=== PATIENT | female | born 1935 | race Caucasian/White ===

== ENCOUNTER 2024-01-30 10:34 | Outpatient (CLI) | payer MEDICARE, BC, SELFPAY | END 2024-01-30 10:35 | disposition home or self-care (01) | LOC: AMB 02-03 20:45 | PROVIDERS: Visit Provider Family Medicine | DX: S09.90XA Unspecified injury of head, initial encounter (principal); W18.30XA Fall on same level, unspecified, initial encounter; Y92.009 Unspecified place in unspecified non-institutional (private) residence as the place of occurrence of the external cause | CPT/HCPCS: A0425; A0427 ==

== ENCOUNTER 2024-01-30 11:16 | Observation (INO) | payer MEDICARE, BC, SELFPAY ==
[2024-01-30] VITALS (41 sets, daily range): BP systolic 109–168; BP diastolic 61–127; PULSE 60–93; RESP 16–22; TEMP 35.9–36.7; O2SAT 95–100; BMI 22.6; BMI 22.4
--- NOTE | 2024-01-30 | CRLHL7_ITS ---
For Patients: As a result of the Century Cures Act, medical imaging exams and procedure reports are released immediately into your electronic medical record. You may view this report before your referring provider. If you have questions, please contact your health care provider. CLINICAL HISTORY: Trauma. TECHNIQUE: Helical CT acquisition of the cervical spine was performed. Coronal and sagittal reformations were performed and interpreted. COMPARISON: None available. FINDINGS: There is no evidence of acute displaced fracture or traumatic malalignment of the cervical spine. The facets are well aligned. Vertebral body heights are maintained without evidence of significant compression deformity. No evidence of significant trauma at the craniocervical junction. Cervical spondylosis. No evidence of severe spinal canal stenosis. Uncovertebral hypertrophy and facet arthropathy contribute to varying degrees of multilevel foraminal narrowing. The visualized prevertebral soft tissues are unremarkable. The visualized lung apices are unremarkable. IMPRESSION: No acute displaced fracture or traumatic malalignment of the cervical spine. Please note that all CT scans at this facility use dose modulation, iterative reconstruction, and/or weight-based dosing when appropriate to reduce radiation dose to as low as reasonably achievable. Dictated by Travis Williamson MD @ 01/30/2024 12:13:30 PM (Electronically Signed)
--- NOTE | 2024-01-30 | CRLHL7_ITS ---
For Patients: As a result of the Century Cures Act, medical imaging exams and procedure reports are released immediately into your electronic medical record. You may view this report before your referring provider. If you have questions, please contact your health care provider. CLINICAL HISTORY: Trauma. TECHNIQUE: Standard helical CT image acquisition through the head was performed. COMPARISON: None available. FINDINGS: There is no acute intracranial hemorrhage, extra-axial collection, mass effect or midline shift. Mancilla-white matter differentiation is preserved. Age-appropriate mild generalized parenchymal volume loss. No acute hydrocephalus. Patchy hypoattenuation in the white matter of both hemispheres likely reflect sequela of chronic small vessel ischemia. No displaced calvarial fracture. Moderate-sized right parieto-occipital scalp hematoma with several foci of subcutaneous emphysema. Thinning of the ocular lenses. The paranasal sinuses and mastoid air cells are well aerated. IMPRESSION: 1. No CT evidence of acute intracranial abnormality or closed head injury. 2. Moderate-sized right parieto-occipital scalp hematoma with several associated foci of subcutaneous emphysema. Please note that all CT scans at this facility use dose modulation, iterative reconstruction, and/or weight-based dosing when appropriate to reduce radiation dose to as low as reasonably achievable. Dictated by Travis Williamson MD @ 01/30/2024 12:09:58 PM (Electronically Signed)
--- NOTE | 2024-01-30 11:34 | CRLHL7_ITS ---
For Patients: As a result of the Cures Act, medical imaging exams and procedure reports are released immediately into your electronic medical record. You may view this report before your referring provider. If you have questions, please contact your health care provider. INDICATION: Fall, syncope TECHNIQUE: Chest 1 view. COMPARISON: None. FINDINGS: The heart is normal in size. The pulmonary vasculature is within normal limits. The lungs are clear. Bones are unremarkable. IMPRESSION: No acute process. Dictated by Thelma Reyez MD @ 01/30/2024 12:35:41 PM Dictated by: Thelma Reyez MD @ 01/30/2024 12:35:49 (Electronically Signed)
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
[2024-01-30 12:15] LABS: Lactate* 1.2 mmol/L (0.5-1.9)
[2024-01-30 12:17] LABS: Basophils Absolute Auto 0.01 K/uL (0.00-0.30); Basophils Percent Auto 0.2 % (0.0-3.0); Eosinophils Absolute Auto 0.02 K/uL (0.00-0.50); Eosinophils Percent Auto 0.3 % (0.0-7.0); Hematocrit 28.7 % (33.0-51.0); Hemoglobin* 9.1 gm/dL (12.0-16.0); Lymphocytes Percent Auto 8.2 % (20-44); Mean Corpuscular HGB Conc 32 gm/dL (32-36); Mean Corpuscular Hemoglobin 35 pg (26-34); Mean Corpuscular Volume 110 fL (80-100); Monocytes Percent Auto 4.4 % (0.0-11.0); Neutrophils Percent Auto 86.9 % (42.0-72.0); Platelet Count* 162 K/uL (140-440); RDW Coefficient of Variation % 13.5 % (11.5-15.5); Red Blood Count 2.62 m/uL (4.00-5.20); White Blood Count* 6.33 K/uL (4.50-11.00)
[2024-01-30 12:25] LABS: Slide Review Reflex No
[2024-01-30 12:33] LABS: Chloride* 103 mmol/L (96-114); Sodium* 137 mmol/L (135-149)
[2024-01-30 12:34] LABS: Potassium* 4.3 mmol/L (3.6-5.1)
[2024-01-30 12:35] LABS: Creatinine* 0.9 mg/dL (0.5-1.5); Est. Creatinine Clearance* 32.39; Estimated Glomerular Filt Rate 62 ml/min
[2024-01-30 12:36] LABS: Alkaline Phosphatase* 51 U/L (40-150); Anion Gap 7 mEq/L (7-15); Aspartate Amino Transferase* 43 U/L (12-35); Carbon Dioxide* 27 mmol/L (20-32); Creatine Kinase* 75 U/L (41-117); Total Protein* 8.2 g/dL (6.0-8.3)
[2024-01-30 12:37] LABS: Alanine Aminotransferase* 32 U/L (4-35); Blood Urea Nitrogen* 23 mg/dL (7-30); Calcium* 9.2 mg/dL (8.4-10.6); Glucose* 198 mg/dL (60-115)
[2024-01-30 12:48] LABS: Troponin I* 0.02 ng/mL (0.01-0.04)
[2024-01-30 12:49] LABS: C Reactive Protein* < 0.5 mg/dL (0.5-1.0); D Dimer Quantitative* 15.81 ug/ml (0.00-0.50); NT Pro B Type NatriureticPept* 474 pg/mL
[2024-01-30 12:55] LABS: PCR FLU A Negative PCR FLU A (Negative); PCR FLU B Negative PCR FLU B (Negative); PCR RSV Negative PCR RSV (Negative); SARS PCR* Negative SARS-CoV-2 (Negative)
--- NOTE | 2024-01-30 12:59 | CRLHL7_ITS ---
For Patients: As a result of the Century Cures Act, medical imaging exams and procedure reports are released immediately into your electronic medical record. You may view this report before your referring provider. If you have questions, please contact your health care provider. Indication: Syncope elevated D-dimer Technique: Contrast CT chest. 95 mL Isovue 370 Comparison: No comparison Findings: Apical fibrotic changes. Small nodules peripheral right upper lobe measuring 4 millimeters Bi lateral upper apical nodules measuring 5 millimeters in the right lung apex 12/14 and left lung apex measuring 7 millimeters. Subpleural reticular opacities may represent fibrosis. Impression: 1. No pulmonary emboli. 2. Small pulmonary nodules follow-up per Fleischner society guidelines. Probable mild fibrosis. Please note that all CT scans at this facility use dose modulation, iterative reconstruction, and/or weight-based dosing when appropriate to reduce radiation dose to as low as reasonably achievable. Dictated by Sera Iraheta MD @ 01/30/2024 3:24:46 PM (Electronically Signed)
--- NOTE | 2024-01-30 12:59 | CRLHL7_ITS ---
For Patients: As a result of the Century Cures Act, medical imaging exams and procedure reports are released immediately into your electronic medical record. You may view this report before your referring provider. If you have questions, please contact your health care provider. INDICATION: Syncope TECHNIQUE: CT abdomen and pelvis with 95 mL Isovue 370 COMPARISON: None. FINDINGS: Liver: Normal in size and attenuation. No suspicious masses. Gallbladder and bile ducts: Cholecystectomy. Pancreas: Unremarkable. No mass or inflammation. Spleen: Normal in size. No masses. Adrenal glands: Normal in size. No nodules. Kidneys: Normal in size. No suspicious masses, stones, or hydronephrosis. GI tract: Abundant stool in the colon diverticulosis. Wall thickening of the right colon with mild inflammatory stranding. Normal appendix . Vasculature: Abdominal aorta is normal in caliber. Lymph nodes: No lymphadenopathy. 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 Pelvis: Slight distention urinary bladder wall thickening and mild pericystic inflammatory change. Bones: Unremarkable for age. No acute fracture seen. IMPRESSION: 1. Wall thickening of the right colon may represent colitis. 2. Wall thickening of the urinary bladder with mild pericystic inflammatory stranding could reflect cystitis. Please note that all CT scans at this facility use dose modulation, iterative reconstruction, and/or weight-based dosing when appropriate to reduce radiation dose to as low as reasonably achievable. Dictated by Sera Iraheta MD @ 01/30/2024 3:43:53 PM (Electronically Signed)
[2024-01-30 15:39] LABS: Appearance Urine Cloudy (Clear); Bilirubin Urine Negative (Negative); Blood Urine 1+ (Negative); Color Urine Yellow (Yellow); Glucose Urine Negative (Negative); Ketones Urine Negative (Negative); Leukocyte Esterase Urine 1+ (Negative); Nitrite Urine Negative (Negative); Protein Urine Negative (Negative); Urobilinogen Urine 0.2 (0.2-1.0)
[2024-01-30 15:52] LABS: Bacteria Urine Many; RBC Urine >100 (0-2); Squamous Epithelial Cell Urine Few (None-Few); WBC Urine >100 (0-5)
[2024-01-30] MEDS: ACETAMINOPHEN 325 MG TABLET 650 MG PO ×2 (16:16→21:23)
[2024-01-30 16:40] LABS: Troponin I* < 0.01 ng/mL (0.01-0.04)
[2024-01-30] MEDS: cefTRIAXone 1 GM in 0.9 % SODIUM CHLORIDE Mini-bag 100 ML IVPB (17:12)
--- NOTE | 2024-01-30 18:26 | P.IMHP_ITS ---
Hospitalist- H&P: HPI History of Present Illness Date Seen: 01/30/24 Chief complaint: Fall, syncope Narrative: Elzbieta Jones is a 88 year old woman who lives alone in her home and was well until this morning around 8:00 a.m. She had awakened for the day and was in the kitchen about to prepare her breakfast. She recalls opening the refrigerator door to take out juice or milk. The next thing she recalls she was going back to the refrigerator to get milk or juice and noticed a pool of blood on the floor of the kitchen in front of the refrigerator door. She began attempting to wipe up the blood with a napkin, then realize that it was hard and congealed in thus elected not to clean it up but rather to call her son, Chiki. She does not recall having a syncopal episode. Had no prodromal symptoms. Denies any other associated symptoms. She does not recall tripping or falling. She does not recall getting up from the floor. Noted some frontal headache. Had no other focal motor neurologic deficits. Velma her head and noticed there was some blood coming from the occiput of her head. Denies any recent illness or other trauma or injury. After calling her son she called the EMS service who came to her home and assessed her and brought her to the emergency department fo r further assessment. Did not have hypoglycemia per EMS and in ED. Does have diabetes mellitus type 2 and does take an oral hypoglycemic agent, glipizide. Last hemoglobin A1c in October 2022 was 7.2. Denies chest heaviness, pressure, tightness, or pain. Denies dyspnea at rest, paroxysmal nocturnal dyspnea, orthopnea. Denies dyspnea with exertion. Denies palpitations or chest fluttering. Denies orthostasis. Denies dizziness or giddiness. Denies lightheadedness. Denies nausea or vomiting. Denies diarrhea. Denies constipation. Denies dysuria, urgency, frequency, hematuria. Notes that urine has appeared darker for the past 5 days or so. Denies foul smell. Review of Systems Status of ROS: Reports: 10 or more systems reviewed and unremarkable except as noted in History and below Narrative: Interestingly tells me about episodes she has been having over the course of the past month where she realizes she fell asleep as she states for a few minutes while watching her television at home. She believes this is unusual. She describes these episodes as lasting between 1 and 4 minutes. Denies any other symptoms in association with these episodes. Designates her son, Chiki, and her daughter, Kina, as her power of commonwealth attorney for health should that be required. Chiki's cell phone number is . Boyd cell phone number is . Patient requests comfort focus measures only in the event of cardiopulmonary demise. Her son and daughter are present during this conversation and support their mother. [facility] Medical History (Updated 01/30/24 @ 19:05 by Juarez Morgan MD) False positive cardiac stress test ?Z78.9 - Other specified health status (ICD-10) History of hypertension ?Z86.79 - Personal history of other diseases of the circulatory system (ICD- 10) Small vessel disease, cerebrovascular ?I67.9 - Cerebrovascular disease, unspecified (ICD-10) Degenerative disc disease, cervical ?M50.30 - Other cervical disc degeneration, unspecified cervical region (ICD- 10) Spinal stenosis, lumbar ?M48.061 - Spinal stenosis, lumbar region without neurogenic claudication (ICD-10) Stasis dermatitis of both legs ?I87.2 - Venous insufficiency (chronic) (peripheral) (ICD-10) Edema ?R60.9 - Edema, unspecified (ICD-10) General weakness ?R53.1 - Weakness (ICD-10) Pulmonary nodule ?R91.1 - Solitary pulmonary nodule (ICD-10) History of Clostridioides difficile colitis ?Z86.19 - Personal history of other infectious and parasitic diseases (ICD- 10) Esophageal dysphagia ?R13.19 - Other dysphagia (ICD-10) Colon, diverticulosis ?K57.30 - Diverticulosis of large intestine without perforation or abscess without bleeding (ICD-10) Osteopenia ?M85.80 - Other specified disorders of bone density and structure, unspecified site (ICD-10) Chronic kidney disease, stage 3b ?N18.32 - Chronic kidney disease, stage 3b (ICD-10) B12 deficiency ?E53.8 - Deficiency of other specified B group vitamins (ICD-10) Late onset Alzheimer dementia ?G30.1 - Alzheimer's disease with late onset (ICD-10) ?F02.80 - Dementia in other diseases classified elsewhere, unspecified severity, without behavioral disturbance, psychotic disturbance, mood disturbance, and anxiety (ICD-10) Myelodysplastic syndrome ?D46.9 - Myelodysplastic syndrome, unspecified (ICD-10) Primary hypothyroidism ?E03.9 - Hypothyroidism, unspecified (ICD-10) Diabetes mellitus type 2 in nonobese ?E11.9 - Type 2 diabetes mellitus without complications (ICD-10) Surgical History (Updated 01/30/24 @ 18:20 by Juarez Morgan MD) History of varicose vein stripping ?Z98.890 - Other specified postprocedural states (ICD-10) Status post cholecystectomy ?Z90.49 - Acquired absence of other specified parts of digestive tract (ICD- 10) Status post blepharoplasty ?Z98.890 - Other specified postprocedural states (ICD-10) History of biopsy of temporal artery ?Z98.890 - Other specified postprocedural states (ICD-10) Family History (Updated 01/30/24 @ 18:22 by Juarez Morgan MD) Son Diabetes Thyroid disease Sister Heart disease Daughter Thyroid disease Social History Smoking Status: Never smoker How often do you have a drink containing alcohol: never AUDIT-C Alcohol total score: 0 Non-prescribed substance use: denies use Meds Home Medications and Allergies Home Medications ?Medication ?Instructions ?Recorded ?Confirmed ?Type acetaminophen 500 mg tablet 1,000 mg PO TID PRN 01/30/24 01/30/24 History ascorbic acid (vitamin C) 500 mg 500 mg PO DAILY 01/30/24 01/30/24 History tablet atorvastatin 40 mg tablet 40 mg PO DAILY 01/30/24 01/30/24 History brimonidine 0.15 % eye drops 1 drp ophthalmic (eye) BID 01/30/24 01/30/24 History cholecalciferol (vitamin D3) 25 25 mcg PO DAILY 01/30/24 01/30/24 History mcg (1,000 unit) capsule glipizide 10 mg tablet 10 mg PO DAILY 01/30/24 01/30/24 History levothyroxine 75 mcg tablet 75 mcg PO DAILY 01/30/24 01/30/24 History polyethylene glycol 3350 17 gram 17 g PO DAILY PRN 01/30/24 01/30/24 History oral powder packet (Miralax) psyllium husk 3.4 gram/5.4 gram 1 tbsp PO DAILY 01/30/24 01/30/24 History oral powder (Metamucil) zinc gluconate 50 mg tablet 50 mg PO DAILY 01/30/24 01/30/24 History Allergies Allergy/AdvReac Type Severity Reaction Status Date / Time No Known Drug Allergies Allergy Verified 01/30/24 12:09 Exam Narrative: Exam Narrative: I examined patient in the emergency department. Appears comfortable and in no acute distress. Eating her dinner and enjoying it. Vision and hearing are adequate. Alert and oriented to self, place, time, and in part to situation. Friendly, articulate, cooperative. No focal motor neurologic deficits apparent. Cranial nerves 3-12 are grossly normal. Occipital hematoma still oozing blood. Sutured. External auditory canals are clear. Tympanic membranes normal. Midline nasal septum. Normal nasal mucosa. Dentition in fair repair. Normal conjunctiva. Conjugate gaze. No nystagmus. Neck is supple. Midline trachea. Normal thyroid. No JVD or hepatojugular reflux. No carotid bruits. No head neck lymphadenopathy. Lungs are clear to auscultation without wheezing, rhonchi, or rales. Chest wall excursions are full. No CVA tenderness. Regular heart rhythm with occasional missed beats. No murmur, gallop, or rub. PMI not laterally displaced. Abdomen is thin with active bowel sounds, soft, nontender. No organomegaly or masses. Palpable pulses upper and lower extremities. Dependent edema bilateral lower extremities up to the knee. Skin is intact. Const: Vital Signs, click to edit/add: Vital Signs - 24 hr 01/30/24 11:30 01/30/24 11:34 01/30/24 11:58 Temperature 96.7 F L Pulse Rate 75 Pulse Rate [Right Pulse Oximeter] 76 Respiratory Rate 18 Blood Pressure Blood Pressure [Le ft Upper Arm] 145/80 H Pulse Oximetry 98 99 98 Oxygen Delivery Me thod Room Air 01/30/24 12:00 01/30/24 12:02 01/30/24 12:11 Temperature Pulse Rate 74 72 77 Pulse Rate [Right Pulse Oximeter] Respiratory Rate 18 18 Blood Pressure 143/66 H 153/79 H Blood Pressure [Le ft Upper Arm] Pulse Oximetry 97 98 99 Oxygen Delivery Me od Room Air Room Air 01/30/24 12:15 01/30/24 12:22 01/30/24 12:30 Temperature Pulse Rate 73 73 77 Pulse Rate [Right Pulse Oximeter] Respiratory Rate 18 Blood Pressure 143/75 H Blood Pressure [Le ft Upper Arm] Pulse Oximetry 98 98 100 Oxygen Delivery Me od Room Air 01/30/24 12:32 01/30/24 12:42 01/30/24 12:45 Temperature Pulse Rate 76 86 75 Pulse Rate [Right Pulse Oximeter] Respiratory Rate 16 16 Blood Pressure 154/67 H 164/73 H Blood Pressure [Le ft Upper Arm] Pulse Oximetry 99 100 99 Oxygen Delivery Me od Room Air Room Air 01/30/24 12:52 01/30/24 13:01 01/30/24 13:13 Temperature Pulse Rate 70 Pulse Rate [Right Pulse Oximeter] Respiratory Rate 16 16 Blood Pressure 147/100 H 150/78 H Blood Pressure [Le ft Upper Arm] Pulse Oximetry 99 Oxygen Delivery [facility] Room Air Room Air 01/30/24 13:15 01/30/24 13:16 01/30/24 13:22 Temperature Pulse Rate 70 72 74 Pulse Rate [Right Pulse Oximeter] Respiratory Rate 16 16 Blood Pressure 138/67 139/63 Blood Pressure [Le ft Upper Arm] Pulse Oximetry 99 100 100 Oxygen Delivery [facility] Room Air Room Air 01/30/24 13:30 01/30/24 14:01 01/30/24 14:02 Temperature Pulse Rate 71 66 76 Pulse Rate [Right Pulse Oximeter] Respiratory Rate 16 Blood Pressure 146/73 H Blood Pressure [Le ft Upper Arm] Pulse Oximetry 98 99 98 Oxygen Delivery Me od Room Air 01/30/24 14:15 01/30/24 14:30 01/30/24 14:32 Temperature Pulse Rate 78 74 77 Pulse Rate [Right Pulse Oximeter] Respiratory Rate 16 Blood Pressure 147/72 H Blood Pressure [Le ft Upper Arm] Pulse Oximetry 98 98 100 Oxygen Delivery Me od Room Air 01/30/24 14:45 01/30/24 15:00 01/30/24 15:01 Temperature Pulse Rate 75 83 76 Pulse Rate [Right Pulse Oximeter] Respiratory Rate 16 Blood Pressure 148/72 H Blood Pressure [Le ft Upper Arm] Pulse Oximetry 98 99 98 Oxygen Delivery Me thod Room Air 01/30/24 15:18 01/30/24 15:30 01/30/24 15:32 Temperature Pulse Rate 91 83 74 Pulse Rate [Right Pulse Oximeter] Respiratory Rate 16 Blood Pressure 146/77 H Blood Pressure [Le ft Upper Arm] Pulse Oximetry 95 99 98 Oxygen Delivery Me thod Room Air 01/30/24 15:45 01/30/24 16:02 01/30/24 16:03 Temperature Pulse Rate 85 82 Pulse Rate [Right Pulse Oximeter] Respiratory Rate 16 Blood Pressure 168/86 H Blood Pressure [Le ft Upper Arm] Pulse Oximetry 98 100 Oxygen Delivery Me thod Room Air 01/30/24 16:15 01/30/24 16:31 01/30/24 16:32 Temperature Pulse Rate 79 79 93 Pulse Rate [Right Pulse Oximeter] Respiratory Rate 16 Blood Pressure 159/127 H Blood Pressure [Le ft Upper Arm] Pulse Oximetry 100 100 99 Oxygen Delivery [place] th[place] Room Air Hospitalist - H&P: Result Labs Labs: Short CBC 01/30/24 Range/Units 12:08 WBC 6.33 (4.50-11.00) K/uL Hgb 9.1 L (12.0-16.0) gm/dL Hct 28.7 L (33.0-51.0) % Plt Count 162 (140-440) K/uL BMP 01/30/24 12:08 Sodium 137 Potassium 4.3 Chloride 103 Carbon Dioxide 27 BUN 23 Creatinine 0.9 Glucose 198 H Calcium 9.2 Cardiac Enzymes 01/30/24 01/30/24 Range/Units 12:08 16:00 Total Creatine Kinase 75 (41-117) U/L Troponin I 0.02 < 0.01 L (0.01-0.04) ng/mL Liver Function 01/30/24 Range/Units 12:08 Total Bilirubin 1.0 (0.1-1.5) mg/dL AST 43 H (12-35) U/L ALT 32 (4-35) U/L Alkaline Phosphatase 51 (40-150) U/L Albumin 4.0 (3.3-5.0) g/dL Urine 01/30/24 Range/Units 15:20 Urine Color Yellow (Yellow) Urine Appearance Cloudy A (Clear) Urine pH 7.0 (5.0-8.5) Ur Specific [place] 1.020 (1.000-1.030) Urine Protein Negative (Negative) Urine Glucose (UA) Negative (Negative) ECG ECG interpretation date: 01/30/24 Interpretation: Sinus rhythm with occasional ventricular premature complexes. Left axis deviation. Imaging CT scan - head: Radiologist's impression: Occipital hematoma with no other acute changes CT scan - cervical spine: Radiologist's impression: No acute abnormalities CT scan - chest: Radiologist's impression: No PE. Small pulmonary nodules - probable mild fibrosis. CT scan - abdomen and pelvis : Radiologist's impression: Right colon suggestive of possible colitis - consider outpatient follow-up. as clinically warranted. Wall thickening of urinary bladder, suggestive of acute cystitis. Assessment and Plan Assessment and plan (1) Syncope: Problem comment: -Unlikely that she tripped and fell. More likely she fainted and fell backwards. -Without prodromal symptoms, concerning for possible cardiogenic etiology: dysrhythmia, orthostasis, structural anomaly, etc. D/Dx: hypoglycemia, seizure, etc. -Admit, rn cardiac in hospital and consider outpatient cardiac rhythm monitoring, neuro checks, glucose monitoring and SSI. -orthostatic BP and HR monitoring. -daily weight. Status: Acute (2) Blunt head trauma: Problem comment: -s/p fall, likely syncope precipitated the fall. -Likely has concussion. Status: Acute (3) Post traumatic amnesia: Problem comment: -no recall of events preceding and immediately following the fall. Status: Acute (4) Laceration of scalp: Problem comment: -suture removal in about 7 days Status: Acute (5) Traumatic hematoma of scalp: Status: Acute (6) Acute UTI: Problem comment: - 01/30/2024: UA with > 100 WBCs and RBCs, positive leukocyte esterase, negative nitrite. - UC obtained -Ceftriaxone 1 g IV daily in hospital Status: Acute (7) Myelodysplastic syndrome: Problem comment: - bicytopenia, followed by hematology -chronic macrocytic anemia -monitor Hg while in hospital Status: Acute (8) Diabetes mellitus type 2 in nonobese: Problem comment: -HgA1C 7.2 10/2022 -QID glucose monitoring in hospital and SSI Status: Acute (9) Late onset Alzheimer dementia: Problem comment: -MOCA 2016 -Reassess MOCA in hospital -Initiated discussion with patient and son and daughter about the possibility that we might recommend that she not live alone -PT and OT to assess and treat while in hospital Status: Acute Plan 1. Reviewed above with patient and family. 2. Answered their questions. 3. They are agreeable with above stated plans and recommendations at this time. Total Time Spent Total Time Spent: 70 min
--- NOTE | 2024-01-30 19:24 | PC.NURSE ---
Pt arrived to M/S at 1715. A/O and able to verbalize needs. Daughter and son at bedside during admission questions. Lac to occiput oozing small amounts of blood but otherwise appears well approximated. Pt denies pain and VSS.
[2024-01-30] MEDS: INSULIN ASPART 100 UNIT/ML SUBCUT (21:29)
[2024-01-30] MEDS: SODIUM CHLORIDE 0.9 % (FLUSH) 10 ML SYRINGE 5 ML IVF (21:30)
[2024-01-31 02:00] VITALS: PULSE 77
[2024-01-31 03:20] VITALS: BP 115/58; PULSE 77; RESP 16; TEMP 36.4; O2SAT 95
[2024-01-31] MEDS: ACETAMINOPHEN 325 MG TABLET 650 MG PO ×3 (03:30→13:27)
[2024-01-31 06:00] VITALS: BP 129/60; BP 133/70; BP 151/84; PULSE 64; PULSE 73; PULSE 75; PULSE 76
[2024-01-31] MEDS: LEVOTHYROXINE 75 MCG TABLET PO (06:02)
[2024-01-31 07:00] VITALS: BP 130/76; PULSE 69; PULSE 77; PULSE 98; RESP 16; RESP 20; TEMP 36.5; O2SAT 96; O2SAT 98
--- NOTE | 2024-01-31 07:08 | PC.NURSE ---
Pt alert and oriented x3. Afebrile. Pt reports 3-5/10 pain in posterior right side of head, pain managed with scheduled medication. Pt?s posterior head dressing is intact with moderate bloody drainage, changed dressing.?Pt is up SBA with walker and gait belt, voiding and tolerating regular diet. Pt slept intermittently throughout night.
[2024-01-31 08:03] LABS: HCO3 VBG 30 mmol/L (21-28); Lactate* 0.9 mmol/L (0.5-1.9); PCO2 VBG 47 mmHG (40-50); PO2 VBG 33.3 mmHG (25-47); pH VBG 7.421 (7.32-7.43)
[2024-01-31 08:36] LABS: INR 1.02 (0.91-1.10)
[2024-01-31 08:53] LABS: Hematocrit 36.1 % (33.0-51.0); Hemoglobin* 11.6 gm/dL (12.0-16.0); Mean Corpuscular HGB Conc 32 gm/dL (32-36); Mean Corpuscular Hemoglobin 35 pg (26-34); Mean Corpuscular Volume 108 fL (80-100); Platelet Count* 143 K/uL (140-440); Red Blood Count 3.33 m/uL (4.00-5.20); Slide Review Reflex No
[2024-01-31 08:54] LABS: Anion Gap 5 mEq/L (7-15); Blood Urea Nitrogen* 24 mg/dL (7-30); Carbon Dioxide* 28 mmol/L (20-32); Chloride* 104 mmol/L (96-114); Creatinine* 0.8 mg/dL (0.5-1.5); Est. Creatinine Clearance* 31.83; Estimated Glomerular Filt Rate 72 ml/min; Potassium* 4.3 mmol/L (3.6-5.1); Sodium* 137 mmol/L (135-149)
[2024-01-31 08:55] LABS: Glucose* 106 mg/dL (60-115); Magnesium* 1.5 mg/dL (1.5-2.6); Phosphorus* 3.8 mg/dL (2.5-4.5)
[2024-01-31 10:00] VITALS: PULSE 69
[2024-01-31] MEDS: glipiZIDE 5 MG TABLET 10 MG PO (10:23)
[2024-01-31] MEDS: SODIUM CHLORIDE 0.9 % (FLUSH) 10 ML SYRINGE 5 ML IVF (10:23)
[2024-01-31] MEDS: BRIMONIDINE TARTRATE 0.2% OPHTH 1 DROP EYE-BOTH (10:24)
[2024-01-31 11:00] VITALS: BP 127/77; PULSE 83; RESP 18; TEMP 36.6; O2SAT 97
--- NOTE | 2024-01-31 15:47 | P.DS_ITS ---
DS: Providers Provider Date Seen: 01/31/24 Date of admission: 01/30/24 18:05 Primary care physician: Not a Local Provider Admitting Clinician: Juarez Morgan MD Consults: 01/30/24 18:14 Consult to Occupational Therapy [CONS] Routine Comment: Reason(s) for OT Consult:: Evaluate and Treat Any Restrictions?:: No Restrictions Consult to Physical Therapy [CONS] Routine Comment: Reason(s) for PT Consult:: Evaluate and Treat Any Restrictions?:: No Restrictions Consult to Remote Encoding Operations Supervisor [CONS] Routine Comment: Reason for Consult:: Discharge Planning Needs 01/30/24 18:52 Consult to Remote Encoding Operations Supervisor [CONS] Routine Comment: Reason for Consult:: Possible SNF placement 01/30/24 21:21 Consult to Physical Therapy [CONS] Routine Comment: Reason(s) for PT Consult:: Evaluate and Treat Any Restrictions?:: No Restrictions Attending Physician on discharge: WILBER Rapp, WENDI [facility] Date of Discharge: 01/31/24 DS: Diagnosis Discharge Diagnosis (1) Syncope: Status: Acute Problem details: -Unlikely that she tripped and fell. More likely she fainted and fell backwards. -Without prodromal symptoms, concerning for possible cardiogenic etiology: dysrhythmia, orthostasis, structural anomaly, etc. D/Dx: hypoglycemia, seizure, etc. Patient remained in the hospital overnight for observation. Telemetry without significant findings other than occasional PVCs. Patient remained vitally stable, afebrile. PT and OT were consulted, recommending outpatient PT OT re- evaluation for current home therapies. Echocardiogram was obtained showing normal left ventricular size, normal wall thickness, low normal global systolic function with EF 50-55%. Aortic valve is calcified without stenosis, trivial regurgitation. Aortic sinus a dilated with a maximal diameter 3.7 cm. 48 hour Holter monitor was placed prior to discharge. She will need close outpatient follow-up with her PCP, already scheduled for Friday 02/02, for further workup and recommendations in setting of syncopal episode. (2) Blunt head trauma: Status: Acute Problem details: -s/p fall, likely syncope precipitated the fall. -Likely has concussion. Amnestic to event. Patient will stay with family until follow-up with PCP in further recommendations. (3) Post traumatic amnesia: Status: Acute Problem details: -no recall of events preceding and immediately following the fall. As above, patient will stay with family until follow-up with PCP for further recommendations (4) Laceration of scalp: Status: Acute Problem details: -suture removal in about 7 days. This may be able to be completed PCP on Thursday. Discussed wound cares. (5) Traumatic hematoma of scalp: Status: Acute Problem details: Symptomatic cares. (6) Acute UTI: Status: Ruled-out Problem details: RULED OUT - 01/30/2024: UA with > 100 WBCs and RBCs, positive leukocyte esterase, negative nitrite. - UC obtained, showing contaminant -Ceftriaxone 1 g IV daily in hospital. Discontinued. No further oral antibiotic necessary at time of discharge (7) Myelodysplastic syndrome: Status: Acute Problem details: - bicytopenia, followed by hematology -chronic macrocytic anemia - stable (8) Diabetes mellitus type 2 in nonobese: Status: Acute Problem details: -HgA1C 7.2 10/2022 (9) Late onset Alzheimer dementia: Status: Acute Problem details: -MOCA 2016 -Initiated discussion with patient and son and daughter about the possibility that we might recommend that she not live alone -PT and OT to assess and treat while in hospital Patient is discharged to home with 24 hour family support and close outpatient follow-up with PCP for further evaluation and recommendations. DS: Summary Hospital Course Hospital Course: [age] year old female was admitted to the medical floor for overnight observation recent syncopal episode and head injury. Course of care and details as noted above. Initiation workup for syncope was begun in the hospital. Echocardiogram was obtained. Holter monitor was placed prior to discharge. She is discharged to home with 24 hour family support. Patient has appointment with her PCP on 02/02 at which time recommending ongoing workup and further recommendations. Suture removal from scalp 5-7 days. Remainder of chronic medical comorbidities were monitored and managed with home medications. Status at Discharge Overall status at discharge: patient is progressing back to baseline Time Spent with Patient Time attestation: Total time spent providing and/or coordinating discharge services: Time spent: Greater than 30 minutes Exam Narrative: Exam Narrative: PHYSICAL EXAM General: Pleasant, conversant, NAD Cardiovascular: RRR Pulmonary: No dyspnea Neurological: Alert, answering questions appropriately Skin: Warm, dry. Const: Vital Signs, click to edit/add: Vital Signs - 24 hr 01/30/24 16:02 01/30/24 16:03 01/30/24 16:15 Temperature Pulse Rate 82 79 Pulse Rate [Pulse Oximeter] Pulse Rate [orthos tatic lying Pulse Oximeter] Pulse Rate [orthos tatic sitting Puls e Oximeter] Pulse Rate [orthos tatic standing Pul se Oximeter] Respiratory Rate 16 Blood Pressure 168/86 H Blood Pressure [Ri ght Arm] Blood Pressure [or thostatic lying] Blood Pressure [or thostatic sitting] Blood Pressure [or thostatic standing Right Arm] Pulse Oximetry 100 100 Oxygen Delivery Me thod Room Air 01/30/24 16:31 01/30/24 16:32 01/30/24 18:10 Temperature 98.1 F Pulse Rate 79 93 Pulse Rate [Pulse Oximeter] 81 Pulse Rate [orthos tatic lying Pulse Oximeter] Pulse Rate [orthos tatic sitting Puls e Oximeter] Pulse Rate [orthos tatic standing Pul se Oximeter] Respiratory Rate 16 22 Blood Pressure 159/127 H Blood Pressure [Ri ght Arm] 140/69 H Blood Pressure [or thostatic lying] Blood Pressure [or thostatic sitting] Blood Pressure [or thostatic standing Right Arm] Pulse Oximetry 100 99 97 Oxygen Delivery Me thod Room Air Room Air 01/30/24 18:10 01/30/24 18:14 01/30/24 18:14 Temperature Pulse Rate Pulse Rate [Pulse Oximeter] 60 Pulse Rate [orthos tatic lying Pulse Oximeter] 60 Pulse Rate [orthos tatic sitting Puls e Oximeter] 81 Pulse Rate [orthos tatic standing Pul se Oximeter] 84 Respiratory Rate 20 Blood Pressure Blood Pressure [Ri ght Arm] Blood Pressure [or thostatic lying] 132/65 Blood Pressure [or thostatic sitting] 120/79 Blood Pressure [or thostatic standing Right Arm] 109/64 Pulse Oximetry 97 Oxygen Delivery Me thod Room Air 01/30/24 20:17 01/30/24 21:54 01/30/24 23:00 Temperature 97.7 F 98.0 F Pulse Rate 71 Pulse Rate [Pulse Oximeter] 60 72 Pulse Rate [orthos tatic lying Pulse Oximeter] Pulse Rate [orthos tatic sitting Puls e Oximeter] Pulse Rate [orthos tatic standing Pul se Oximeter] Respiratory Rate 18 18 Blood Pressure Blood Pressure [Ri ght Arm] 132/65 123/61 Blood Pressure [or thostatic lying] Blood Pressure [or thostatic sitting] Blood Pressure [or thostatic standing Right Arm] Pulse Oximetry 96 99 Oxygen Delivery Ky thod Room Air Room Air 01/30/24 23:00 01/31/24 02:00 01/31/24 03:20 Temperature 97.6 F Pulse Rate Pulse Rate [Pulse Oximeter] 77 77 Pulse Rate [orthos tatic lying Pulse Oximeter] Pulse Rate [orthos tatic sitting Puls e Oximeter] Pulse Rate [orthos tatic standing Pul se Oximeter] Respiratory Rate 18 16 Blood Pressure Blood Pressure [Ri ght Arm] 115/58 L Blood Pressure [or thostatic lying] Blood Pressure [or thostatic sitting] Blood Pressure [or thostatic standing Right Arm] Pulse Oximetry 99 95 Oxygen Delivery Ky thod Room Air Room Air 01/31/24 06:00 01/31/24 06:00 01/31/24 07:00 Temperature Pulse Rate Pulse Rate [Pulse Oximeter] 75 Pulse Rate [orthos tatic lying Pulse Oximeter] 76 Pulse Rate [orthos tatic sitting Puls e Oximeter] 73 Pulse Rate [orthos tatic standing Pul se Oximeter] 64 Respiratory Rate 16 Blood Pressure Blood Pressure [Ri ght Arm] Blood Pressure [or thostatic lying] 133/70 Blood Pressure [or thostatic sitting] 151/84 H Blood Pressure [or thostatic standing Right Arm] 129/60 Pulse Oximetry 96 Oxygen Delivery Ky thod Room Air 01/31/24 07:00 01/31/24 07:00 01/31/24 07:00 Temperature 97.7 F Pulse Rate 77 Pulse Rate [Pulse Oximeter] 69 98 Pulse Rate [orthos tatic lying Pulse Oximeter] Pulse Rate [orthos tatic sitting Puls e Oximeter] Pulse Rate [orthos tatic standing Pul se Oximeter] Respiratory Rate 20 20 Blood Pressure Blood Pressure [Ri ght Arm] 130/76 Blood Pressure [or thostatic lying] Blood Pressure [or thostatic sitting] Blood Pressure [or thostatic standing Right Arm] Pulse Oximetry 98 Oxygen Delivery Ky thod Room Air 01/31/24 10:00 01/31/24 11:00 Temperature 98 F Pulse Rate Pulse Rate [Pulse Oximeter] 69 83 Pulse Rate [orthos tatic lying Pulse Oximeter] Pulse Rate [orthos tatic sitting Puls e Oximeter] Pulse Rate [orthos tatic standing Pul se Oximeter] Respiratory Rate 18 Blood Pressure Blood Pressure [Ri ght Arm] 127/77 Blood Pressure [or thostatic lying] Blood Pressure [or thostatic sitting] Blood Pressure [or thostatic standing Right Arm] Pulse Oximetry 97 Oxygen Delivery Me thod Room Air DS: Data Data Completed and Pending Labs on day of discharge: Labs from last 24 hours 01/31/24 01/30/24 01/30/24 06:15 16:00 15:20 WBC 3.60 L RBC 3.33 L Hgb 11.6 L Hct 36.1 MCV 108 H MCH 35 H MCHC 32 Plt Count 143 INR 1.02 VBG pH 7.421 VBG pCO2 47 VBG pO2 33.3 VBG HCO3 30 H Sodium 137 Potassium 4.3 Chloride 104 Carbon Dioxide 28 Anion Gap 5 L BUN 24 Creatinine 0.8 Estimated Creat Clear 31.83 Estimated GFR 72 Glucose 106 Lactate 0.9 Calcium 9.0 Phosphorus 3.8 Magnesium 1.5 Troponin I < 0.01 L TSH Urine RBC >100 A Urine WBC >100 A Ur Squamous Epith Cells Few Urine Bacteria Many A 01/30/24 12:08 WBC RBC Hgb Hct MCV MCH MCHC Plt Count INR VBG pH VBG pCO2 VBG pO2 VBG HCO3 Sodium Potassium Chloride Carbon Dioxide Anion Gap BUN Creatinine Estimated Creat Clear Estimated GFR Glucose Lactate Calcium Phosphorus Magnesium Troponin I TSH 3.260 Urine RBC Urine WBC Ur Squamous Epith Cells Urine Bacteria Preliminary micro results at discharge 01/30/24 15:20 Urine Culture - Preliminary Urine,Clean Catch < 10,000 COL/ML MIXED GRAM POSITIVE SELINA ISOLATED NO FURTHER WORKUP Imaging CT Chest/Ab/Pelvis: Attestation: I have reviewed the pertinent imaging results. Radiologist's impression: Apical fibrotic changes. Small nodules peripheral right upper lobe measuring 4 millimeters Bi lateral upper apical nodules measuring 5 millimeters in the right lung apex 12/14 and left lung apex measuring 7 millimeters. Subpleural reticular opacities may represent fibrosis. Impression: 1. No pulmonary emboli. 2. Small pulmonary nodules follow-up per Fleischner society guidelines. Probable mild fibrosis. Liver: Normal in size and attenuation. No suspicious masses. Gallbladder and bile ducts: Cholecystectomy. Pancreas: Unremarkable. No mass or inflammation. Spleen: Normal in size. No masses. Adrenal glands: Normal in size. No nodules. Kidneys: Normal in size. No suspicious masses, stones, or hydronephrosis. GI tract: Abundant stool in the colon diverticulosis. Wall thickening of the right colon with mild inflammatory stranding. Normal appendix . Vasculature: Abdominal aorta is normal in caliber. Lymph nodes: No lymphadenopathy. 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 Pelvis: Slight distention urinary bladder wall thickening and mild pericystic inflammatory change. Bones: Unremarkable for age. No acute fracture seen. IMPRESSION: 1. Wall thickening of the right colon may represent colitis. 2. Wall thickening of the urinary bladder with mild pericystic inflammatory stranding could reflect cystitis. CT scan - head: Attestation: I have reviewed the pertinent imaging results. Radiologist's impression: 1. No CT evidence of acute intracranial abnormality or closed head injury. 2. Moderate-sized right parieto-occipital scalp hematoma with several associated foci of subcutaneous emphysema. CT C- spine shows no acute displaced fracture or traumatic malalignment of the cervical spine Additional Comments Additional comments: Urine culture showing contaminant. Antibiotics discontinued. No current acute symptomatology of colitis. Discharge Plan Discharge Disposition: Home, Self-Care Date of Admission: 01/30/24 18:05 Attending Provider on Discharge: Emma Fulton Primary Care Provider: Provider,Not a Local Condition: Improved Anticipated Discharge Date/Time: 01/31/24 13:33 Discharge Medications: Continued atorvastatin 40 mg tablet 40 mg PO DAILY glipizide 10 mg tablet 10 mg PO DAILY levothyroxine 75 mcg tablet 75 mcg PO DAILY brimonidine 0.15 % drops 1 drp ophthalmic (eye) BID polyethylene glycol 3350 [Miralax] 17 gram powder in packet 17 g PO DAILY PRN Metamucil 3.4 gram/5.4 gram powder 1 tbsp PO DAILY Rx Instructions: mix into at least 8 oz of water or juice before administering zinc gluconate 50 mg tablet 50 mg PO DAILY ascorbic acid (vitamin C) 500 mg tablet 500 mg PO DAILY acetaminophen 500 mg tablet 1,000 mg PO TID PRN cholecalciferol (vitamin D3) 25 mcg (1,000 unit) capsule 25 mcg PO DAILY OASIS TEARS PLUS 1 drp ophthalmic (eye) DIRECTED PRN Rx Instructions: GLYCERIN 0.22% Discharge Orders: Discharge Order (Routine); Ordered 01/31/24 Ordered By: Emma Fulton Patient Education: Laceration (GEN), Syncope (DC), Syncope (GEN), Head Injury (GEN), Fall Prevention (DC), Amnesia (GEN), Head Laceration (ED) Additional Instructions: It is important you stay with family until follow up with your PCP which has been previously scheduled for Friday 02/02. Use your walker or cane at all times. You would benefit from outpatient PT/OT home re-evaluation for any modifications in your current therapies. Your PCP can assist with scheduling this. You have been given instructions on your holter monitor. Your PCP may order another monitor for a longer evaluation. Your final echocardiogram results are not yet available. Your urine culture is unremarkable, you do not have a urinary tract infection so do not need further antibiotics. You have scalp sutures which should be removed in 5-7 days. Activity Level: Activity as Tolerated Discharge Diet: Diabetic Follow Up Appointments: Provider,Not a Local [Primary Care Provider] - [facility]: [facility] Info Instructions
== END 2024-01-31 15:35 | disposition home or self-care (01) ==
LOC: ED 16:51 → MEDSURG 18:08
PROVIDERS: Admitting Provider Internal Medicine; Emergency Provider Family Medicine; Visit Provider Internal Medicine
DX: R55 Syncope and collapse (principal); S00.03XA Contusion of scalp, initial encounter; S09.8XXA Other specified injuries of head, initial encounter; R79.89 Other specified abnormal findings of blood chemistry; R91.8 Other nonspecific abnormal finding of lung field; R41.3 Other amnesia; W19.XXXA Unspecified fall, initial encounter; R91.1 Solitary pulmonary nodule; I12.9 Hypertensive chronic kidney disease with stage 1 through stage 4 chronic kidney disease, or unspecified chronic kidney disease; E11.22 Type 2 diabetes mellitus with diabetic chronic kidney disease; N18.32 Chronic kidney disease, stage 3b; I70.0 Atherosclerosis of aorta; E78.5 Hyperlipidemia, unspecified; E03.9 Hypothyroidism, unspecified; D46.9 Myelodysplastic syndrome, unspecified; G30.1 Alzheimer's disease with late onset; F02.80 Dementia in other diseases classified elsewhere, unspecified severity, without behavioral disturbance, psychotic disturbance, mood disturbance, and anxiety; D75.9 Disease of blood and blood-forming organs, unspecified; D53.9 Nutritional anemia, unspecified; M50.30 Other cervical disc degeneration, unspecified cervical region; I87.2 Venous insufficiency (chronic) (peripheral); M85.80 Other specified disorders of bone density and structure, unspecified site; Z79.84 Long term (current) use of oral hypoglycemic drugs; Z79.82 Long term (current) use of aspirin; Z86.19 Personal history of other infectious and parasitic diseases; Z86.79 Personal history of other diseases of the circulatory system; Z90.49 Acquired absence of other specified parts of digestive tract; Z98.890 Other specified postprocedural states; Z78.9 Other specified health status
CPT/HCPCS: 36415; 70450; 71045; 71275; 72125; 74177; 80048; 80053; 81001; 82550; 82803; 82962; 83605; 83735; 83880; 84100; 84443; 84484; 85025; 85027; 85379; 85610; 86140; 87086; 87631; 93005; 93225; 93226; 93306; 94761; 96372; 96374; 97116; 97161; 97165; 99285; 99291; G0378; A9270; G0390; J0696; Q9967